=== PATIENT | female | born 1990 | race African-American/Black ===

== ENCOUNTER 2018-04-16 09:39 | Observation (INO) | payer MEDICAID ==
[~2018-04-16] VITALS: Ht 160 cm; Wt 107.0 kg
[2018-04-16] MEDS ORDERED: PNV1TABL76 PO (10:08)
[2018-04-16] MEDS ORDERED: FOLI-43 PO (10:08)
[2018-04-16] MEDS ORDERED: FERR325T6 PO (10:08)
== END 2018-04-16 11:40 | disposition home or self-care (01) ==
LOC: 8EST NSY 09:39
PROVIDERS: ADMIT Obstetrics & Gynecology; ATTEND Obstetrics & Gynecology
DX: O62.9 Abnormality of forces of labor, unspecified (principal); Z3A.39 39 weeks gestation of pregnancy
CPT/HCPCS: 99281; G0378

== ENCOUNTER 2018-04-19 00:58 | Inpatient (IN) | payer MEDICAID ==
[~2018-04-19] VITALS: Ht 160 cm; Wt 107.0 kg
[~2018-04-19 00:58] MED LIST: FERR325T6 PO; FOLI-43 PO; PNV1TABL76 PO
[2018-04-19] MEDS ORDERED: METHYLERGONOVINE MALEATE 0.2 MG/ML IM PRN (02:45)
[2018-04-19] MEDS ORDERED: CARBOPROST TROMETHAMINE 250 MCG/ML AMPUL IM PRN (02:45)
[2018-04-19] MEDS ORDERED: MISOPROSTOL 100MCG TABLET VG SCH (02:45)
[2018-04-19] MEDS ORDERED: BUTORPHANOL TARTRATE 2 MG/ML VIAL IV PRN (02:45)
[2018-04-19] MEDS ORDERED: AMPICILLIN 2,000 MG in SODIUM CHLORIDE 0.9% 100 ML IV SCH (03:00)
[2018-04-19 03:21] LABS: BASOPHILS % 0.2 % (0.0-2.0); EOSINOPHILS % 1.5 % (0.0-5.0); HEMATOCRIT. 42.4 % (36.0-48.0); HEMOGLOBIN. 14.3 g/dL (12.0-16.0); LYMPHOCYTES % 18.8 % (20.0-50.0); MEAN CORPUSCULAR HEMOGLOBIN 30.4 pg (28.0-32.0); MEAN PLATELET VOLUME 10.3 fl (7.4-10.4); MONOCYTES % 6.7 % (2.0-8.0); NEUTROPHILS % 72.8 % (40.0-76.0); PLATELET 163 x1000/uL (130-400); RED BLOOD CELL COUNT 4.71 mill/uL (4.2-5.4); RED CELL DISTRIBUTION WIDTH 13.7 % (11.6-14.6)
[2018-04-19 03:24] LABS: CHLORIDE 110 mEq/L (98-107)
[2018-04-19 03:28] LABS: INR 0.9; PARTIAL THROMBOPLASTIN TIME 32.1 sec (23.4-31.0); PROTHROMBIN TIME 9.4 sec (9.1-11.1)
[2018-04-19] MEDS ORDERED: LACTATED RINGERS 1,000 ML IV SCH (03:30)
[2018-04-19] MEDS ORDERED: DEXT 5%/LR + PITOCIN 20UNITS/L 1,000 ML IV SCH ×2 (03:30→03:57)
[2018-04-19 03:49] LABS: B-HCG QUANTITATIVE 2532 mIU/mL (<3)
[2018-04-19] MEDS ORDERED: IBUPROFEN 400MG TABLET PO PRN (04:00)
[2018-04-19] MEDS ORDERED: ACETAMINOPHEN WITH CODEINE 300/30MG TABLET PO PRN (04:00)
[2018-04-19] MEDS ORDERED: RHO(D) IMMUNE GLOBULIN 300 MCG/SYR IM PRN (04:00)
[2018-04-19 06:00] VITALS: BP 103/55
[2018-04-19 08:30] VITALS: BP 107/57
[2018-04-19] MEDS ORDERED: AMPICILLIN 1,000 MG in SODIUM CHLORIDE 0.9% 50 ML IV SCH (09:00)
[2018-04-19 10:49] LABS: CLARITY URINE CLOUDY (CLEAR); COLOR URINE RED (YELLOW); KETONES URINE NEGATIVE (NEGATIVE); LEUKOCYTE ESTERASE URINE TRACE (NEGATIVE); NITRITE URINE NEGATIVE (NEGATIVE); OCCULT BLOOD URINE 3+ (NEGATIVE); PROTEIN URINE TRACE (NEGATIVE); SPECIFIC GRAVITY URINE 1.016 (1.005-1.030); UROBILINOGEN URINE 0.2 E.U./dL (0.2-1.0)
[2018-04-19 11:20] LABS: *BARBITURATES SCREEN URINE NEGATIVE (NEGATIVE)
[2018-04-19 11:21] LABS: *AMPHETAMINES SCREEN URINE NEGATIVE (NEGATIVE); *BENZODIAZEPINES SCREEN URINE NEGATIVE (NEGATIVE); *COCAINE SCREEN URINE NEGATIVE (NEGATIVE); METHADONE URINE SCREEN NEGATIVE (NEGATIVE); OPIATES URINE SCREEN NEGATIVE (NEGATIVE); PHENCYCLIDINE URINE SCREEN NEGATIVE (NEGATIVE)
[2018-04-19 11:22] LABS: CANNABINOID URINE SCREEN NEGATIVE (NEGATIVE)
[2018-04-19 12:49] LABS: HEPATITIS B SURFACE ANTIGEN NEGATIVE
[2018-04-19 18:25] VITALS: BP 94/54
[2018-04-19 20:00] VITALS: BP 112/71
[2018-04-20] MEDS: IBUPROFEN 800MG TABLET PO PRN ×2 (03:42→23:54)
[2018-04-20 04:00] VITALS: BP 112/64
[2018-04-20 07:55] LABS: BASOPHILS % 0.3 % (0.0-2.0); HEMATOCRIT. 38.9 % (36.0-48.0); HEMOGLOBIN. 13.2 g/dL (12.0-16.0); LYMPHOCYTES % 18.6 % (20.0-50.0); MEAN CORPUSCULAR HEMOGLOBIN 30.6 pg (28.0-32.0); MEAN CORPUSCULAR VOLUME 90.1 fL (81.0-99.0); MEAN PLATELET VOLUME 10.3 fl (7.4-10.4); MONOCYTES % 6.7 % (2.0-8.0); NEUTROPHILS % 72.4 % (40.0-76.0); PLATELET 177 x1000/uL (130-400); RED BLOOD CELL COUNT 4.32 mill/uL (4.2-5.4); RED CELL DISTRIBUTION WIDTH 13.8 % (11.6-14.6)
[2018-04-20 08:52] VITALS: BP 96/59
[2018-04-20 14:52] VITALS: BP 92/60
[2018-04-20] MEDS ORDERED: POTASSIUM CHLORIDE 20MEQ TABLET SR PO SCH (19:30)
[2018-04-20 22:00] VITALS: BP 108/64
[2018-04-21 06:00] VITALS: BP 102/62
[2018-04-21 07:30] VITALS: BP 109/51
== END 2018-04-21 13:30 | disposition home or self-care (01) | DRG 560 ==
LOC: ER 00:58 → 8EST NSY 02:33 → 8EST 04:45
PROVIDERS: ADMIT Obstetrics & Gynecology; ATTEND Obstetrics & Gynecology
PROC: 10E0XZZ Delivery of Products of Conception, External Approach (ICD-10-PCS; principal; 2018-04-19)
DX: O77.0 Labor and delivery complicated by meconium in amniotic fluid (principal); E87.6 Hypokalemia; O99.284 Endocrine, nutritional and metabolic diseases complicating childbirth; Z37.0 Single live birth; Z3A.39 39 weeks gestation of pregnancy; Z83.3 Family history of diabetes mellitus
CPT/HCPCS: 36415; 80305; 84702; 86592; 86703; 86762; 86850; 86900; 87340; 99285; J0290; J2590; J7050; J7120

== ENCOUNTER 2022-11-03 21:05 | Emergency (ER) | payer MEDICAID ==
[~2022-11-03] VITALS: Ht 160 cm; Wt 93.2 kg
[~2022-11-03 21:05] MED LIST changes: +ABIL10 MT
[2022-11-03 21:16] VITALS: O2SAT 100
[2022-11-03 21:44] LABS: CLARITY URINE CLOUDY (CLEAR); COLOR URINE YELLOW (YELLOW); GLUCOSE URINE NEGATIVE (NEGATIVE); KETONES URINE NEGATIVE (NEGATIVE); LEUKOCYTE ESTERASE URINE NEGATIVE (NEGATIVE); NITRITE URINE NEGATIVE (NEGATIVE); OCCULT BLOOD URINE NEGATIVE (NEGATIVE); PH URINE 5.5 (4.5-8.0); PROTEIN URINE TRACE (NEGATIVE); SPECIFIC GRAVITY URINE 1.034 (1.005-1.030)
[2022-11-03 21:46] LABS: BACTERIA URINE 1+; RBC URINE NONE SEEN /hpf (0-2); SQUAMOUS EPITHELIAL CELL URINE 2+ /lpf (RARE/1+); YEAST URINE NONE SEEN
[2022-11-03 22:04] LABS: BASOPHILS % 0.7 % (0.0-2.0); DIFFERENTIAL COMMENT 0; EOSINOPHILS % 2.1 % (0.0-5.0); HEMATOCRIT. 31.7 % (36.0-48.0); HEMOGLOBIN. 9.8 g/dL (12.0-16.0); MEAN CORPUSCULAR HEMOGLOBIN 23.1 pg (28.0-32.0); MEAN CORPUSCULAR HGB CONC 30.9 g/dL (31.0-37.0); MEAN CORPUSCULAR VOLUME 74.7 fL (81.0-99.0); MONOCYTES % 7.8 % (2.0-8.0); NEUTROPHILS % 63.4 % (40.0-76.0); PLATELET 403 x1000/uL (130-400); RED BLOOD CELL COUNT 4.24 mill/uL (4.2-5.4); RED CELL DISTRIBUTION WIDTH 16.4 % (11.6-14.6); WHITE BLOOD COUNT 9.4 x1000/uL (4.5-11.0)
[2022-11-03 22:09] LABS: CHLORIDE 112 mEq/L (98-107); INDEX HEMOLYSI 1 (1-3); INDEX ICTERIC 1 (1-4); INDEX LIPEMIC 1 (1-3); POTASSIUM 3.2 mEq/L (3.5-5.1); SODIUM 138 mEq/L (136-145)
[2022-11-03 22:16] LABS: ALANINE AMINOTRANSFERASE 22 IU/L (13-61); ALBUMIN 2.7 g/dL (3.4-5.0); ASPARTATE AMINOTRANSFERASE 21 IU/L (15-37); BILIRUBIN TOTAL 0.2 mg/dL (0.1-1.0); CALCIUM 8.1 mg/dL (8.5-10.1); CARBON DIOXIDE 22 mEq/L (21-32); CREATININE 0.8 mg/dL (0.6-1.3); GLUCOSE 130 mg/dL (70-105); PROTEIN TOTAL 7.1 g/dL (6.0-8.3); UREA NITROGEN BLOOD 14 mg/dL (7-21)
[2022-11-03 22:22] LABS: HCG SCREEN NEGATIVE
[2022-11-03] MEDS ORDERED: ONDANSETRON 4MG ODT PO ONE (22:45)
[2022-11-03 22:50] VITALS: BP 115/62; PULSE 81; RESP 16; TEMP 98.5
[2022-11-03] MEDS ORDERED: ONDA4TAB50 MT (22:52)
== END 2022-11-03 22:58 | disposition home or self-care (01) ==
LOC: ER 21:16
DX: K52.9 Noninfective gastroenteritis and colitis, unspecified (principal); F31.9 Bipolar disorder, unspecified
CPT/HCPCS: 99283; 80053; 81003; 81025; 84703; 83690; 85025; 36415; Q0162

== ENCOUNTER 2024-02-18 20:16 | Emergency (ER) | payer MEDICAID ==
[~2024-02-18] VITALS: Ht 160 cm; Wt 98.3 kg
[~2024-02-18 20:16] MED LIST changes: +ONDA4TAB50 MT
[2024-02-18 20:24] VITALS: BP 98/55; TEMP 98.7; O2SAT 100
[2024-02-18 20:36] VITALS: PULSE 67; RESP 16; O2SAT 100
[2024-02-18] MEDS ORDERED: IBUP-2029 MT (22:05)
[2024-02-18] MEDS ORDERED: AMOX-494 MT (22:05)
== END 2024-02-18 22:17 | disposition home or self-care (01) ==
LOC: ER 20:27
DX: J02.8 Acute pharyngitis due to other specified organisms (principal); F31.9 Bipolar disorder, unspecified; Z79.899 Other long term (current) drug therapy
CPT/HCPCS: 99283